=== PATIENT | male | born 1970 | race Caucasian/White ===

== ENCOUNTER 2024-05-02 08:53 | Outpatient (CLI) | payer BC, SELFPAY | END 2024-05-02 08:54 | disposition home or self-care (01) | PROVIDERS: PCP Family Medicine; Visit Provider Family Medicine | DX: I10 Essential (primary) hypertension (principal); Z12.5 Encounter for screening for malignant neoplasm of prostate; Z13.6 Encounter for screening for cardiovascular disorders | CPT/HCPCS: 80048; 80061; G0103 ==

== ENCOUNTER 2025-03-22 10:49 | Outpatient (CLI) | payer BC, SELFPAY | END 2025-03-22 10:50 | disposition home or self-care (01) | LOC: FBOREF 10:50 | PROVIDERS: PCP Family Medicine; Visit Provider Family Medicine | DX: I10 Essential (primary) hypertension (principal) | CPT/HCPCS: 80048 ==